=== PATIENT | female | born 1995 | race Caucasian/White ===

== ENCOUNTER 2016-08-04 17:03 | Emergency (ER) | payer OTHER ==
[2016-08-04] MEDS ORDERED: NS 1,000 ML IV ONE ×2 (17:22→18:14)
[2016-08-04 17:23] VITALS: RESP 18
[2016-08-04 17:31] LABS: COLOR YELLOW; LEUKOCYTE ESTERASE,URINE 3+ (NEGATIVE); NITRITE,URINE NEGATIVE (NEGATIVE)
--- NOTE | 2016-08-04 17:41 | EDPHY ---
H & P Time Seen by Provider: 08/04/16 17:22 HPI/ROS: CHIEF COMPLAINT: Dysuria HISTORY OF PRESENT ILLNESS: The patient is a 21 year old female presenting with dysuria that started yesterday. The patient states she is prone to urinary tract infections. However her symptoms are worse than usual UTIs. She had multiple episodes of emesis that started last night and has continued to vomit today with associated nausea. This morning she developed low back pain that is moderate to severe and developed a fever. Associated with generalized weakness and fatigue. REVIEW OF SYSTEMS: Aside from elements discussed in the HPI, a comprehensive 10-point review of systems was reviewed and is negative. Past Medical/Surgical History: Frequent UTIs. Social History: [employer] student. Smoking Status: Former smoker Physical Exam: General Appearance: Alert, nontoxic Eyes: Pupils equal and round, no conjunctival pallor or injection ENT, Mouth: Mucous membranes moist Neck: Normal inspection Respiratory: Lungs are clear to auscultation Cardiovascular: Regular rate and rhythm Gastrointestinal: Abdomen is soft and non-tender Neurological: A&O, nonfocal, normal gait Skin: Warm and dry, no rash Extremities: Nontender, no pedal edema Back: No CVA tenderness Psychiatric: Mood and affect normal Constitutional: Initial Vital Signs Temperature (C) 37.5 C 08/04/16 17:10 Heart Rate 144 H 08/04/16 17:10 Respiratory Rate 20 08/04/16 17:10 Blood Pressure 103/85 H 08/04/16 17:10 O2 Sat (%) 95 08/04/16 17:10 O2 Delivery Mode Room Air Allergies/Adverse Reactions: No Known Allergies Allergy (Verified 08/04/16 17:09) Home Medications: Medication Instructions Recorded Cefdinir [Omnicef (*)] 300 mg PO BID #20 cap 08/04/16 Hydrocodone/APAP 5/325 [[place] 1 - 2 tab PO Q4H PRN #10 tab 08/04/16 5/325] Ondansetron Odt [Zofran Odt 4 mg 4 mg PO Q4 PRN #6 tab 08/04/16 (*)] Medical Decision Making ED Course/Re-evaluation: Clinical presentation consistent with acute pyelonephritis. Dip urinalysis is positive for leuks. IV was established. The patient received 1L normal saline, 4mg Zofran IV, and 30mg Toradol IV and 1gm Rocephin IV. Tylenol 650mg PO was given. Feels better after IV medications. Abdomen remained soft and nontender. Will continue IV fluids and give patient a p.o. fluid challenge. 7:07 p.m.: I rechecked the patient. She is feeling better, tolerating oral fluids well and would like to be discharged home. Differential Diagnosis: Differential diagnosis includes though it is not limited to appendicitis, cholecystitis, diverticulitis, bowel perforation, small bowel obstruction. 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 Medications Given: Discontinued Medications Acetaminophen (Tylenol) 650 mg PO EDNOW ONE Stop: 08/04/16 17:44 Last Admin: 08/04/16 18:00 Dose: 650 mg Sodium Chloride (Ns) 1,000 mls @ 0 mls/hr IV ONCE ONE PRN Reason: Wide Open Stop: 08/04/16 17:23 Last Admin: 08/04/16 17:41 Dose: 1,000 mls Ceftriaxone Sodium/Dextrose (Rocephin 1 Gm (Premix)) 50 mls @ 100 mls/hr IV EDNOW ONE PRN Reason: Protocol Stop: 08/04/16 18:12 Last Admin: 08/04/16 18:10 Dose: 50 mls Sodium Chloride (Ns) 1,000 mls @ 0 mls/hr IV ONCE ONE PRN Reason: Wide Open Stop: 08/04/16 18:15 Last Admin: 08/04/16 18:05 Dose: 1,000 mls Ketorolac Tromethamine (Toradol) 30 mg IVP EDNOW ONE Stop: 08/04/16 17:44 Last Admin: 08/04/16 18:15 Dose: 30 mg Ondansetron HCl (Zofran) 4 mg IVP EDNOW ONE Stop: 08/04/16 17:44 Last Admin: 08/04/16 18:05 Dose: 4 mg Departure - Departure Disposition: Home, Routine, Self-Care Clinical Impression: Pyelonephritis Condition: Good Instructions: Hydrocodone/Acetaminophen (By mouth), Kidney Infection (ED) Additional Instructions: Call the Emergency Department in 2 days for urine culture results. Take full course of antibiotics. Take Zofran as directed for nausea. Take hydrocodone as prescribed for severe pain. Followup with your primary care physician in 2-3 days. Return to the Emergency Department with fever, increased pain, new, or worsening symptoms. Referrals: [facility] [Outside] - As per Instructions Prescriptions: Hydrocodone/APAP 5/325 [[place] 5/325] 1 - 2 tab PO Q4H PRN #10 tab PRN Reason: Pain, Moderate Cefdinir [Omnicef (*)] 300 mg PO BID #20 cap Ondansetron Odt [Zofran Odt 4 mg (*)] 4 mg PO Q4 PRN #6 tab PRN Reason: Nausea Report Scribed for: Sarah Carter Report Scribed by: Karen Sneed Date of Report: 08/04/16 Time of Report: 17:37 Physician Review and Approval Statement: 08/04/16 17:37 Portions of this note were transcribed by a medical accounting clerk. I personally performed the history, physical exam, and medical decision-making; and confirmed the accuracy of the information in the transcribed note.
[2016-08-04 17:42] LABS: MUCUS TRACE /lpf (NONE-1+); RBC,URINE 50-182 /hpf (0-3); WBC,URINE 50-182 /hpf (0-3)
[2016-08-04] MEDS ORDERED: ACETAMINOPHEN 325 MG TAB PO ONE (17:43)
[2016-08-04] MEDS ORDERED: KETOROLAC 30 MG/1 ML SDV IVP ONE (17:43)
[2016-08-04] MEDS ORDERED: ONDANSETRON 4 MG/2 ML VIAL IVP ONE (17:43)
[2016-08-04 19:20] VITALS: BP 102/50; PULSE 105; TEMP 98.2; O2SAT 95
== END 2016-08-04 19:28 | disposition home or self-care (01) ==
DX: N12 Tubulo-interstitial nephritis, not specified as acute or chronic (principal); Z87.891 Personal history of nicotine dependence
CPT/HCPCS: 96365; J0696; J1885; J2405

== ENCOUNTER 2017-01-01 06:47 | Emergency (ER) | payer OTHER ==
[2017-01-01 06:54] VITALS: BP 147/88; PULSE 101; RESP 16; TEMP 97.7; O2SAT 96
--- NOTE | 2017-01-01 06:54 | EDPHY ---
H & P Time Seen by Provider: 01/01/17 06:53 HPI/ROS: CHIEF COMPLAINT: Left ear pain HISTORY OF PRESENT ILLNESS: The patient presents to the ED with complaints of acute left ear pain that began at midnight. Patient has had a history allergic rhinitis over the past several weeks. She reports she had an ear infection approximately 4 years ago. She denies significant past medical history. She denies headache, neck pain or focal neurologic symptoms. She denies significant sore throat. The patient reports her symptoms are moderate to severe in nature. She did take a single hydrocodone tablet prior to arrival without improvement of her symptoms. REVIEW OF SYSTEMS: A comprehensive 10 point review of systems is otherwise negative aside from elements mentioned in the history of present illness. Source: Patient Exam Limitations: No limitations - Personal History Tetanus Vaccine Date: < 10 years - Medical/Surgical History Hx Asthma: No Hx Chronic Respiratory Disease: No Hx Diabetes: No Hx Cardiac Disease: No Hx Renal Disease: No Hx Cirrhosis: No Hx Alcoholism: No Hx HIV/AIDS: No Hx Splenectomy or Spleen Trauma: No Other PMH: none - Social History Smoking Status: Former smoker - Physical Exam Exam: General Appearance: Alert, no distress Eyes: Pupils equal and round no pallor or injection ENT, Mouth: Left tympanic membrane bulging with the effusion Respiratory: There are no retractions, lungs are clear to auscultation Cardiovascular: Regular rate and rhythm Gastrointestinal: Abdomen is soft and nontender, no masses, bowel sounds normal Neurological: A&O, normal motor function, normal sensory exam, normal cranial nerves Skin: Warm and dry, no rashes Musculoskeletal: Neck is supple nontender Extremities: symmetrical, full range of motion Constitutional: Initial Vital Signs Temperature (C) 36.5 C 01/01/17 06:52 Heart Rate 101 H 01/01/17 06:52 Respiratory Rate 16 01/01/17 06:52 Blood Pressure 147/88 H 01/01/17 06:52 O2 Sat (%) 96 01/01/17 06:52 O2 Delivery Mode Room Air Allergies/Adverse Reactions: No Known Allergies Allergy (Verified 01/01/17 06:51) Home Medications: Medication Instructions Recorded Amoxicillin Trihydrate 500 mg PO Q8 #21 cap 01/01/17 [Amoxicillin] Bcp 01/01/17 Ibuprofen [Motrin (*)] 600 mg PO QID PRN #30 tab 01/01/17 Medical Decision Making ED Course/Re-evaluation: The patient presents to the ED with a left otitis media without perforation. The patient will be started on antibiotics and prescribed anti-inflammatory medications. She will be discharged home customary aftercare instructions. The patient has no clinical evidence of meningitis or an abnormal neurologic exam. She has no complaints of significant headache. Departure - Departure Disposition: Home, Routine, Self-Care Clinical Impression: Otitis media Qualifiers: Otitis media type: suppurative Chronicity: acute Laterality: left Recurrence: not specified as recurrent Spontaneous tympanic membrane rupture: without spontaneous rupture Qualified Code(s): H66.002 - Acute suppurative otitis media without spontaneous rupture of ear drum, left ear Condition: Good Instructions: Otitis Media (ED) Additional Instructions: 1. Take antibiotics as directed for next 7 days. 2. Please take prescription strength Motrin as directed. 3. Tylenol 650 mg every 6 hours as needed for pain. 4. Please follow up with the ENT physician you have been referred to for any unimproved symptoms. Referrals: [facility] [Other] - As per Instructions Briana Palacios PA [Physician Freelance Director] - As per Instructions
== END 2017-01-01 07:11 | disposition home or self-care (01) ==
DX: H66.002 Acute suppurative otitis media without spontaneous rupture of ear drum, left ear (principal); Z87.891 Personal history of nicotine dependence